=== PATIENT | female | born 2000 | race Hispanic/Latino ===

== ENCOUNTER 2020-08-14 17:31 | Outpatient (CLI) | payer OTHER, MEDICAID ==
[2020-08-14] MEDS ORDERED: LACTATED RINGERS 1,000 ML IV ONE (19:05)
[2020-08-14 19:37] LABS: Hematocrit 33.4 % (30.3-42.9); Mean Corpuscular HGB Conc 36 % (30-34); Mean Corpuscular Volume 85 fl (79-97); Platelet Count 198 K/mm3 (140-440); Red Blood Count 3.93 M/mm3 (3.65-5.03); Red Cell Distribution Width 12.6 % (13.2-15.2)
[2020-08-14 19:40] LABS: Bilirubin,Urine NEG (Negative); Blood,Urine NEG (Negative); Color,Urine Yellow (Yellow); Mucus,Urine FEW /HPF; Protein,Urine <15 mg/dL mg/dL (Negative)
[2020-08-14] MEDS ORDERED: ACETAMINOPHEN 325 MG TAB PO ONE (19:49)
[2020-08-14 20:02] LABS: Alanine Aminotransferase 17 units/L (7-56)
[2020-08-14 20:13] VITALS: BP 117/72
[2020-08-14 21:25] LABS: Uric Acid 4.1 mg/dL (3.5-7.6)
== END 2020-08-14 20:39 | disposition home or self-care (01) ==
LOC: TRG 17:31 → APU 17:32 → TRG 20:39
PROVIDERS: ATTEND Obstetrics & Gynecology
DX: O26.893 Other specified pregnancy related conditions, third trimester (principal); R42 Dizziness and giddiness; O47.03 False labor before 37 completed weeks of gestation, third trimester; Z3A.31 31 weeks gestation of pregnancy
CPT/HCPCS: 36415; 59025; 81001; 82565; 83615; 84450; 84460; 84550; 85027; 96360; J7120

== ENCOUNTER 2020-09-09 12:06 | Outpatient (CLI) | payer OTHER, MEDICAID ==
[2020-09-09] MEDS ORDERED: LACTATED RINGERS 1,000 ML IV SCH (13:45)
[2020-09-09 13:49] LABS: Bilirubin,Urine NEG (Negative); Blood,Urine NEG (Negative); Color,Urine Yellow (Yellow); Mucus,Urine FEW /HPF; Protein,Urine <15 mg/dL mg/dL (Negative)
[2020-09-09 13:53] LABS: RBC,Urine < 1.0 /HPF (0.0-6.0)
[2020-09-09] MEDS ORDERED: TERBUTALINE 1 MG/1 ML INJ SUB-Q ONE (14:54)
[2020-09-09 15:37] VITALS: BP 122/69
== END 2020-09-09 15:45 | disposition home or self-care (01) ==
LOC: TRG 12:06 → APU 12:07 → TRG 15:45
PROVIDERS: ATTEND Obstetrics & Gynecology
DX: O62.9 Abnormality of forces of labor, unspecified (principal); Z3A.34 34 weeks gestation of pregnancy
CPT/HCPCS: 59025; 81001; 96360; 96361; 96372; J3105; J7120

== ENCOUNTER 2020-09-21 06:08 | Outpatient (CLI) | payer OTHER, MEDICAID ==
[2020-09-21 06:48] VITALS: BP 122/73
[2020-09-21] MEDS ORDERED: LACTATED RINGERS 1,000 ML IV ONE (07:30)
[2020-09-21] MEDS ORDERED: TERBUTALINE 1 MG/1 ML INJ IVP SCH (08:00)
== END 2020-09-21 10:17 | disposition home or self-care (01) ==
LOC: TRG 06:08 → APU 06:09 → TRG 10:17
PROVIDERS: ATTEND Obstetrics & Gynecology
DX: O62.9 Abnormality of forces of labor, unspecified (principal); Z3A.36 36 weeks gestation of pregnancy
CPT/HCPCS: 59025; 96361; 96365; J3105; J7120; 96360; 96372

== ENCOUNTER 2020-10-19 20:14 | Outpatient (CLI) | payer OTHER, MEDICAID ==
[2020-10-19 21:03] VITALS: BP 123/79
[2020-10-19] MEDS ORDERED: ACETAMINOPHEN 500 MG TAB PO ONE (21:16)
== END 2020-10-19 22:10 | disposition home or self-care (01) ==
LOC: TRG 20:14 → APU 20:57 → TRG 22:10
PROVIDERS: ATTEND Obstetrics & Gynecology
DX: Z34.93 Encounter for supervision of normal pregnancy, unspecified, third trimester (principal); Z3A.40 40 weeks gestation of pregnancy
CPT/HCPCS: 59025; Q0177

== ENCOUNTER 2020-10-21 10:22 | Inpatient (IN) | payer OTHER, MEDICAID ==
[2020-10-21] MEDS ORDERED: miSOPROStol 200 MCG TAB PR PRN (11:11)
[2020-10-21] MEDS ORDERED: fentaNYL 100 MCG/2 ML INJ IV PRN (11:11)
[2020-10-21] MEDS ORDERED: AMPICILLIN/NS 2 GM/100 ML 2 GM/100 ML BAG IV ONE ×2 (11:11→14:19)
[2020-10-21] MEDS ORDERED: TERBUTALINE 1 MG/1 ML INJ SUB-Q PRN (11:11)
[2020-10-21] MEDS ORDERED: METHYLERGONOVINE MALEATE 0.2 MG/ML VIAL IM PRN (11:11)
[2020-10-21] MEDS ORDERED: CARBOPROST TROMETHAMINE 250 MCG/1 ML INJ IM PRN (11:11)
[2020-10-21] MEDS ORDERED: OXYTOCIN 10 UNIT/1 ML INJ IM PRN (11:11)
[2020-10-21] MEDS ORDERED: LIDOCAINE (2%) 20 MG/1 ML VIAL 20 ML MDV INFILTRATI NR (11:11)
[2020-10-21] MEDS ORDERED: ePHEDrine SULFATE 50 MG/1 ML INJ IV PRN (11:11)
--- NOTE | 2020-10-21 11:26 | History and Physical Report ---
History of Present Illness Date of examination: 10/21/20 (pt presents with ctx; 41w; EFW5%) Chief complaint: "I'm having some contractions." History of present illness: EDC Confirmation: 10/14/2020 Gestational Age: 5 6/7 weeks Past History : 2 Term Births: 0 Premature Births: 0 Living Children: 0 Para: 0 Mult. Births: 0 Prev : 0 Prev. attempt? 0 Aborta: 1 Elect. Ab: 1 Spont. 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 Infection History Hx of STD: none HIV Risk Eval: no Hepatitis B Risk Eval: low risk Personal hx. of genital herpes: no Partner hx. of genital herpes: no Rash, Viral, or Febrile illness since last LMP? no Varicella/Chicken Pox Status: Immunized TB Risk: no Genetic History Congenital Heart Defect: Mom: no Dad: no Venita Disease: Mom: no Dad: no Thalassemia Mom: no Dad: no Neural Tube Defect Mom: no Dad: no Down's Syndrome Mom: no Dad: no Phillip-Sachs Mom: no Dad: no Sickle Cell Disease/Trait Mom: no Dad: no Hemophilia Mom: no Dad: no Muscular Dystrophy Mom: no Dad: no Cystic Fibrosis Mom: no Dad: no [place] Chorea Mom: no Dad: no Mental Retardation Mom: no Dad: no Fragile X Mom: no Dad: no Other Genetic/Chromosomal Disorder Mom: no Dad: no Child w/other defect Mom: no Dad: no Enviromental Exposures Xray Exposure: no Medication, drug, or alcohol use since LMP: no Chemical/Other Exposure: no Exposure to Cat Liter: no Hx of Parvovirus (Fifth Disease): no Occupational Exposure to Children: none Active Medications (reviewed today): None Current Allergies (reviewed today): NKDA Past History - Obstetrical History Expected Date of Delivery: 10/14/20 Actual Gestation: 41 Week(s) 0 Day(s) : 2 Para: 0 Hx # Term Pregnancies: 0 Number of Pregnancies: 0 Spontaneous Abortions: 0 Induced : 1 (2019) Number of Living Children: 0 Medications and Allergies Allergies Allergy/AdvReac Type Severity Reaction Status Date / Time No Known Allergies Allergy Verified 09/09/20 13:32 Review of Systems All systems: negative - Vital Signs Vital signs: Vital Signs Pulse BP 109 H 122/71 10/21/20 11:00 10/21/20 11:00 Temp Pulse Resp BP Pulse Ox 101 H 122/71 98 10/21/20 11:16 10/21/20 11:00 10/21/20 11:16 - Physical Exam Breasts: Cardiovascular: Regular rate, Normal S1, Normal S2 Abdomen: Positive: normal appearance, soft, normal bowel sounds. Negative: distention, tenderness Genitourinary (Female): Positive: normal external genitalia Vulva: both: normal Vagina: Positive: normal moisture. Negative: discharge Cervix: Negative: lesion, discharge Uterus: Positive: normal size, normal contour Adnexa: both: normal Anus/Rectum: Positive: normal perianal skin, heme negative. Negative: rectal mass, hemorrhoids Extremities: Positive: normal Deep Tendon Reflex Grade: Normal +2 - Obstetrical FHR: category 1 Uterine Contraction Monitor Mode: External Cervical Dilatation: 3 Cervical Effacement Percentage: 70 station: -1 Uterine Contraction Pattern: Irregular Uterine Tone Measurement Phase: Resting Uterine Contraction Intensity: Moderate Results All other labs normal. GBS POSITIVE HBsAg Screen Negative Negative *1 RPR Non Reactive Non Reactive *2 Rubella Antibodies, IgG 4.84 index Immune >0.99 *3 Non-immune <0.90 Equivocal 0.90 - 0.99 Immune >0.99 ABO Grouping B *4 Rh Factor Negative Rhogam given 07-24-20 Please note: Prior records for this patient's ABO / Rh type are not available for additional verification. Antibody Screen Negative Negative *6 WBC 8.0 x10E3/uL 3.4-10.8 *7 RBC 4.76 x10E6/uL 3.77-5.28 *8 Hemoglobin 14.0 g/dL 11.1-15.9 *9 Hematocrit 41.0 % 34.0-46.6 *10 MCV 86 fL 79-97 *11 MCH 29.4 pg 26.6-33.0 *12 MCHC 34.1 g/dL 31.5-35.7 *13 RDW 12.4 % 11.7-15.4 *14 Platelets 208 x10E3/uL 150-450 *15 Neutrophils 75 % Not Estab. *16 Lymphs 19 % Not Estab. *17 Monocytes 6 % Not Estab. *18 Eos 0 % Not Estab. *19 Basos 0 % Not Estab. *20 ! Immature Cells <No Reported Value> *21 Neutrophils (Absolute) 5.9 x10E3/uL 1.4-7.0 *22 Lymphs (Absolute) 1.5 x10E3/uL 0.7-3.1 *23 Monocytes(Absolute) 0.5 x10E3/uL 0.1-0.9 *24 Eos (Absolute) 0.0 x10E3/uL 0.0-0.4 *25 Baso (Absolute) 0.0 x10E3/uL 0.0-0.2 *26 ! Immature Granulocytes 0 % Not Estab. *27 ! Immature Grans (Abs) 0.0 x10E3/uL 0.0-0.1 *28 ! NRBC <No Reported Value> *29 Hematology Comments: <No Reported Value> *30 Tests: (2) HIV Ag/Ab with Reflex ([id number]) HIV Screen 4th Generation wRfx Non Reactive Non Reactive *31 Tests: (3) HCV Ab w/Rflx to Verification ([id number]) ! HCV Ab <0.1 s/co ratio 0.0-0.9 *32 Tests: (4) Comment: ([id number]) ! Comment: [facility] *33 Non reactive HCV antibody screen is consistent with no HCV infection, unless recent infection is suspected or other evidence exists to indicate HCV infection. Tests: (5) Urine Culture, Routine ([id number]) Urine Culture, Routine Final report *34 Tests: (6) Result ([id number]) ! Result 1 No growth *35 Assessment and Plan 20yo @ 41w in early labor Will begin IOL/augmentation due to postdates and EFW 5%. Dr Spencer aware. GBS+ Pt is Rh negative All orders in EMR. - Patient Problems (1) Small for gestational age fetus Onset Date: ~10/21/20 Current Visit: Yes Status: Acute Plan to address problem: Post dates US in office BPD/Femur length lag @ 10% Overall EFW 5% (2) Group B Streptococcus carrier state affecting Onset Date: ~10/21/20 Current Visit: Yes Status: Acute Plan to address problem: GBS+ @ 35w Treat per protocol Ampicillin (3) Rh negative status during Onset Date: ~10/21/20 Current Visit: Yes Status: Acute Plan to address problem: Rhogam given July Will order rhogam study after delivery
[2020-10-21] MEDS ORDERED: OXYTOCIN DRIP 30 UNITS/500 ML BAG IV SCH (12:00)
[2020-10-21] MEDS ORDERED: ACETAMINOPHEN 325 MG TAB PO PRN (12:00)
[2020-10-21] MEDS ORDERED: ONDANSETRON 4 MG/2 ML INJ IV PRN (12:30)
[2020-10-21] MEDS ORDERED: PROMETHAZINE 25 MG TAB PO PRN (12:30)
[2020-10-21 13:28] LABS: Hematocrit 37.8 % (30.3-42.9); Mean Corpuscular HGB Conc 34 % (30-34); Mean Corpuscular Volume 83 fl (79-97); Platelet Count 208 K/mm3 (140-440); Red Blood Count 4.54 M/mm3 (3.65-5.03); Red Cell Distribution Width 13.2 % (13.2-15.2)
[2020-10-21] MEDS: OXYTOCIN DRIP 30 UNITS/500 ML BAG IV SCH ×2 (14:54→19:56)
[2020-10-21] MEDS: AMPICILLIN/NS 1 GM/50 ML 1 GM/50 ML BAG IV SCH (19:55)
[2020-10-21] MEDS ORDERED: MINERAL OIL 30 ML ORAL LIQD PO PRN (22:00)
[2020-10-22] MEDS: AMPICILLIN/NS 1 GM/50 ML 1 GM/50 ML BAG IV SCH ×5 (00:25→11:41)
--- NOTE | 2020-10-22 06:52 | Progress Note ---
Assessment and Plan pt c/o worsening ctx Pain med given SVE 3-4,80,-1 AROM light meconium, internal monitors placed Pitocin @ 6mu will increase per protocol Ampicillin per protocol for GBS+ Will re-eval after epidural. - Patient Problems (1) Small for gestational age fetus Onset Date: ~10/21/20 Current Visit: Yes Status: Acute (2) Group B Streptococcus carrier state affecting Onset Date: ~10/21/20 Current Visit: Yes Status: Acute Plan to address problem: Ampicillin per protocol (3) Rh negative status during Onset Date: ~10/21/20 Current Visit: Yes Status: Acute Subjective - Subjective Date of service: 10/22/20 (bolus for epidural) Principal diagnosis: Day#2 IOL 41w1d Meconium Interval history: EDC Confirmation: 10/14/2020 Gestational Age: 5 6/7 weeks Past History : 2 Term Births: 0 Premature Births: 0 Living Children: 0 Para: 0 Mult. Births: 0 Prev : 0 Prev. attempt? 0 Aborta: 1 Elect. Ab: 1 Spont. 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 Infection History Hx of STD: none HIV Risk Eval: no Hepatitis B Risk Eval: low risk Personal hx. of genital herpes: no Partner hx. of genital herpes: no Rash, Viral, or Febrile illness since last LMP? no Varicella/Chicken Pox Status: Immunized TB Risk: no Genetic History Congenital Heart Defect: Mom: no Dad: no Venita Disease: Mom: no Dad: no Thalassemia Mom: no Dad: no Neural Tube Defect Mom: no Dad: no Down's Syndrome Mom: no Dad: no Phillip-Sachs Mom: no Dad: no Sickle Cell Disease/Trait Mom: no Dad: no Hemophilia Mom: no Dad: no Muscular Dystrophy Mom: no Dad: no Cystic Fibrosis Mom: no Dad: no Ruben Chorea Mom: no Dad: no Mental Retardation Mom: no Dad: no Fragile X Mom: no Dad: no Other Genetic/Chromosomal Disorder Mom: no Dad: no Child w/other defect Mom: no Dad: no Enviromental Exposures Xray Exposure: no Medication, drug, or alcohol use since LMP: no Chemical/Other Exposure: no Exposure to Cat Liter: no Hx of Parvovirus (Fifth Disease): no Occupational Exposure to Children: none Active Medications (reviewed today): None Current Allergies (reviewed today): NKDA Patient reports: movement normal Objective - Vital Signs Vital Signs: Vital Signs - 12hr 10/21/20 10/21/20 10/22/20 20:52 21:00 00:08 Temperature 98.0 F Pulse Rate 73 74 Respiratory Rate Blood Pressure 122/68 120/78 10/22/20 10/22/20 10/22/20 03:47 03:49 06:30 Temperature 97.7 F Pulse Rate 71 Respiratory 18 Rate Blood Pressure 95/54 - Exam Breasts: deferred Cardiovascular: Regular rate Lungs: Clear to auscultation Abdomen: Present: normal appearance Uterus: Present: normal FHR: category 1 Uterine Contraction Monitor Mode: Internal Cervical Dilatation: 3.5 (light meconium) Cervical Effacement Percentage: 80 (ISE/IUPC) station: -1 Uterine Contraction Pattern: Regular Uterine Tone Measurement Phase: Resting Uterine Contraction Intensity: Moderate Extremities: normal Deep Tendon Reflex Grade: Normal +2 - Labs Labs: Laboratory Results - last 24 hr 10/21/20 10/21/20 10/21/20 13:05 13:05 13:05 WBC 9.9 RBC 4.54 Hgb 13.0 Hct 37.8 MCV 83 MCH 29 MCHC 34 RDW 13.2 Plt Count 208 Syphilis IgG Antibody Nonreactive Blood Type B NEGATIVE Antibody Screen Negative
[2020-10-22] MEDS ORDERED: OXYTOCIN DRIP 30 UNITS/500 ML BAG IV SCH (07:00)
--- NOTE | 2020-10-22 08:32 | Anesthesia Consultation ---
Anesthesia Consult and Med Hx Date of service: 10/22/20 - Airway Anesthetic Teeth Evaluation: Good ROM Head & Neck: Adequate Mental/Hyoid Distance: Adequate Mallampati Class: Class II Intubation Access Assessment: Probably Good - Pulmonary Exam CTA: Yes - Cardiac Exam Cardiac Exam: RRR - Pre-Operative Health Status ASA Pre-Surgery Classification: ASA2 Proposed Anesthetic Plan: Epidural - Pulmonary Hx Asthma: No COPD: No Hx Pneumonia: No - Cardiovascular System Hx Hypertension: No - Central Nervous System Hx Seizures: No Hx Psychiatric Problems: No - Endocrine Hx Renal Disease: No Hx End Stage Renal Disease: No Hx Hypothyroidism: No Hx Hyperthyroidism: No - Hematic Hx Anemia: No Hx Sickle Cell Disease: No - Other Systems Hx Alcohol Use: No
[2020-10-22] MEDS: LACTATED RINGERS 1,000 ML IV SCH ×2 (08:43→09:30)
--- NOTE | 2020-10-22 08:51 | Progress Note ---
Labor Epidural - Labor Epidural Start Time: 08:40 Stop Time: 08:42 Performed by:: WHITLEY CENTENO Procedure: Patient is requesting epidural for labor pain. H&P, and labs reviewed. Procedure explained, questions answered, consent obtained. Patient in sitting position with blood pressure cuff and pulse ox on and working. Timeout performed immediately before start of procedure. Sterile chlorahexadine 0.5% prep/drape. 3 mL 1% lidocaine skin wheal at L[3]-L[4]. 18-gauge IBillionairetead epidural needle advanced to [id number] with saline at [7] cm. 27-gauge spinal needle advanced until clear, free-flowing CSF. Intrathecal dexmedetomidine [5] mcg administered and needle removed. Epidural catheter advanced to [12] cm, negative aspiration for blood and csf, negative test dose 3 ml 1.5% lidocaine with epinephrine. Sterile steri-strips and tegaderm applied, followed by tape reinforcement. Patient tolerated procedure well.
[2020-10-22] MEDS ORDERED: NALOXONE 2 MG/2 ML INJ IV PRN (09:00)
[2020-10-22] MEDS ORDERED: ePHEDrine SULFATE 50 MG/1 ML INJ IV PRN (09:00)
[2020-10-22] MEDS ORDERED: fentaNYL-BUPIV 2 MCG/ML-0.125% 200 MCG/100 ML BAG EPIDURAL SCH (09:00)
[2020-10-22] MEDS ORDERED: SODIUM CHLORIDE 0.9% 1000 ML 1,000 ML VG SCH (11:30)
[2020-10-22] MEDS ORDERED: miSOPROStol 200 MCG TAB ONE (14:20)
[2020-10-22] MEDS ORDERED: MAGNESIUM HYDROXIDE (MOM) ORAL LIQD UDC PO PRN (14:36)
[2020-10-22] MEDS ORDERED: diphenhydrAMINE 25 MG CAP PO PRN (14:36)
[2020-10-22] MEDS ORDERED: LANOLIN/ZINC/DIMETHICONE (LANSINOH) 7 GM TP PRN (14:36)
[2020-10-22] MEDS ORDERED: WITCH HAZEL/ GLYCERIN PAD TP PRN (14:36)
--- NOTE | 2020-10-22 14:40 | Procedure Note ---
OB Delivery Note - Delivery Date of Delivery: 10/22/20 Nut Feeder: SYDNEY LEWIS (Martinez RASHEED present for delivery) Estimated blood loss: 100cc - Vaginal Delivery presentation: vertex Delivery position: OA Intrapartum events: meconium Delivery induction: oxytocin Delivery augmentation: rupture of membranes Delivery monitor: external FHT, external uterine, internal FHT, internal uterine Route of delivery: Delivery placenta: spontaneous Delivery cord: 3 umbilical vessels Episiotomy: none Delivery laceration: none Anesthesia: epidural - Infant A at 1 minute: 8 at 5 minutes: 9 Infant Gender: Female (6lbs 13oz)
[2020-10-22] MEDS ORDERED: IBUPROFEN 600 MG TAB PO SCH (15:00)
[2020-10-22] MEDS: IBUPROFEN 800 MG TAB PO SCH (18:20)
[2020-10-23 03:27] LABS: Hematocrit 30.7 % (30.3-42.9); Hemoglobin 10.7 gm/dl (10.1-14.3)
[2020-10-23] MEDS: IBUPROFEN 800 MG TAB PO SCH ×2 (06:19→14:02)
--- NOTE | 2020-10-23 07:16 | Discharge Summary ---
Providers - Providers Date of Admission: 10/21/20 10:23 Date of discharge: 10/23/20 (Pt in good condition to be discharged home.) Attending physician: LIZZY GALLEGO Primary care physician: LIZZY GALLEGO Hospitalization Reason for admission: induction of labor Delivery: Episiotomy: none Laceration: none Other procedures: none complications: none Discharge diagnosis: IUP at term delivered [place] baby: female Hospital course: S: Pt doing well today. Passing flatus, voiding, and ambulating okay. BC: Mirena. O: VSS. H/H 10.7/30.7. Fundus firm, minimal bleeding noted. A: 20 y.o. s/p , in good condition and can be discharged home. P: Discharge home with instructions. Pt to schedule visit in office in 4-6 weeks. Condition at discharge: Good Disposition: DC-01 TO HOME OR SELFCARE Plan - Provider Discharge Summary Activity: routine, no sex for 6 weeks, no heavy lifting 4 weeks, no strenuous exercise Diet: routine Instructions: routine Additional instructions: [] Smoking cessation referral if applicable(refer to patient education folder for contact #) [] Refer to [employer] Booklet Call your doctor immediately for: * Fever > 100.5 * Heavy vaginal bleeding ( >1 pad per hour) * Severe persistent headache * Shortness of breath * Reddened, hot, painful area to leg or breast * Drainage or odor from incision. * Keep incision clean and dry at all times and follow doctor's instructions regarding bathing/showering Congratulations on your baby girl! Please scheduled your visit in the office in 4-6 weeks. If you have any questions or concerns after discharge, please do not hesitate to call the office at [phone]. - Follow up plan Follow up: LIZZY GALLEGO MD [Primary Care Provider] - 7 Days
[2020-10-23] MEDS ORDERED: PRENATAL VIT27-FE FUMARATE-FOLIC ACID VIT TAB PO SCH (10:00)
[2020-10-23 16:20] VITALS: BP 101/62
--- NOTE | 2020-10-23 17:42 | Post Anesthesia Evaluation ---
- Post Anesthesia Evaluation Patient Participated: Yes Airway Patent: Yes Stable Respiratory Function: Yes Nausea/Vomiting: No Temp > 96.8F: Yes Pain Manageable: Yes Adequeate Hydration: Yes Anesthesia Complications: No Block Receding Appropriately: Yes
== END 2020-10-23 16:40 | disposition home or self-care (01) | DRG 806 ==
LOC: TRG 10:22 → LD 10:23 → TRG 11:11 → OB 10-22 16:34
PROVIDERS: ADMIT Obstetrics & Gynecology; ATTEND Obstetrics & Gynecology
PROC: 10E0XZZ Delivery of Products of Conception, External Approach (ICD-10-PCS; principal; 2020-10-22)
PROC: 3E0R3BZ Introduction of Anesthetic Agent into Spinal Canal, Percutaneous Approach (ICD-10-PCS; 2020-10-22)
PROC: 00HU33Z Insertion of Infusion Device into Spinal Canal, Percutaneous Approach (ICD-10-PCS; 2020-10-22)
PROC: 3E033VJ Introduction of Other Hormone into Peripheral Vein, Percutaneous Approach (ICD-10-PCS; 2020-10-22)
PROC: 3E0234Z Introduction of Serum, Toxoid and Vaccine into Muscle, Percutaneous Approach (ICD-10-PCS; 2020-10-22)
DX: O99.824 Streptococcus B carrier state complicating childbirth (principal); O36.0930 Maternal care for other rhesus isoimmunization, third trimester, not applicable or unspecified; Z37.0 Single live birth; Z3A.41 41 weeks gestation of pregnancy; O77.0 Labor and delivery complicated by meconium in amniotic fluid
CPT/HCPCS: 36415; 59025; 85014; 85018; 85027; 85461; 86592; 86850; 86900; 86901; 99211; G0378; G0463; J0290; J2590; J2790; J3010; J7030; J7120; Q0177; U0003